=== PATIENT | female | born 1960 | race Caucasian/White ===

== ENCOUNTER → 2017-02-19 | Outpatient (CLI) | payer BC ==
[~2017-02-19] MED LIST: ESTRACE PO; MULTIPLE VITAMI1 CAP PO; SINGULAIR PO
== END ==
LOC: MC.RAD 14:10
DX: Z12.31 Encounter for screening mammogram for malignant neoplasm of breast (principal)

== ENCOUNTER → 2019-08-18 | Outpatient (CLI) | payer BC | LOC: MC.RAD 06-23 11:30 | DX: Z12.31 Encounter for screening mammogram for malignant neoplasm of breast (principal); N63.20 Unspecified lump in the left breast, unspecified quadrant ==

== ENCOUNTER → 2019-08-25 | Outpatient (CLI) | payer BC | LOC: MC.RAD 10:19 | DX: N60.02 Solitary cyst of left breast (principal) ==

== ENCOUNTER 2022-04-03 07:35 | Day surgery (SDC) | payer BC ==
[~2022-04-03] VITALS: Ht 157.5 cm; Wt 71.2 kg
[2022-04-03] MEDS ORDERED: MOBIC15 MG PO (08:13)
[2022-04-03] MEDS ORDERED: LIPITOR20 MG PO (08:13)
[2022-04-03 08:15] VITALS: BP 114/70; PULSE 74; TEMP 98.4
[2022-04-03 09:35] VITALS: BP 109/63; PULSE 75; TEMP 97.6
--- NOTE | 2022-04-03 09:35 | NUR ---
pt to [facility] via cart from endo room, walked to chair, now in room, call light in reach, takes snack and Dr into talk with pt on results
[2022-04-03 09:50] VITALS: BP 102/76; PULSE 76
[2022-04-03 10:05] VITALS: BP 109/71; PULSE 66
--- NOTE | 2022-04-03 10:05 | NUR ---
reviewed pt instructions, on diverticulosis, precautions and activity today with verbal understanding. iv d'cd intact. pt up and dressed in room and discharged via w/c to car with
== END 2022-04-03 10:05 | disposition home or self-care (01) ==
LOC: SDCO 07:35
DX: Z12.11 Encounter for screening for malignant neoplasm of colon (principal); K56.699 Other intestinal obstruction unspecified as to partial versus complete obstruction; K57.30 Diverticulosis of large intestine without perforation or abscess without bleeding
CPT/HCPCS: J2704; J7030

== ENCOUNTER 2024-05-14 10:39 | Emergency (ER) | payer BC ==
[~2024-05-14] VITALS: Ht 157.5 cm; Wt 70.5 kg
[~2024-05-14 10:39] MED LIST changes: +LIPITOR20 MG PO; +MOBIC15 MG PO
[2024-05-14 10:51] VITALS: TEMP 97.8
[2024-05-14 12:56] VITALS: BP 124/66; PULSE 70
== END 2024-05-14 12:56 | disposition home or self-care (01) ==
LOC: COL.ER 10:39
DX: H35.61 Retinal hemorrhage, right eye (principal)